=== PATIENT | male | born 1985 | race Caucasian/White ===

== ENCOUNTER 2018-08-23 23:21 | Emergency (ER) | payer SELFPAY ==
[~2018-08-23] VITALS: Ht 185.4 cm; Wt 63.5 kg
[2018-08-23 23:24] VITALS: BP 131/69
[2018-08-23] MEDS ORDERED: HYDROcodone/APAP 5/325MG 1 TAB TABLET PO ONE (23:45)
[2018-08-23] MEDS ORDERED: PENI500T PO (23:45)
--- NOTE | 2018-08-23 23:45 | PHYS DOC ---
Adult General Chief Complaint Chief Complaint: DENTAL PROBLEM HPI HPI Patient is a 32 year old male who presents to the emergency Department today with complaints of bilateral upper posterior dental pain for the last 3 hours. Patient denies any fever, recent injury, or recent dental fracture. States that he tried taking aleve PM with no relief of his pain. Review of Systems Review of Systems Constitutional: Denies fever or chills [] HENT: See HPI Integument: Denies rash or skin lesions [] Neurologic: Denies headache, focal weakness or sensory changes [] All other systems were reviewed and found to be within normal limits, except as documented in this note. Physical Exam Physical Exam Constitutional: Well developed, well nourished, no acute distress, non-toxic appearance. [] HENT: Normocephalic, atraumatic, bilateral external ears normal, oropharynx moist, no oral exudates, several missing teeth and broken teeth with diffuse dental decay, no visible dental abscess, nose normal. [] Eyes: conjunctiva normal, no discharge. [] Skin: Warm, dry, no erythema, no rash. [] Neurologic: Alert and oriented X 3, normal motor function, normal sensory function, no focal deficits noted. [] Psychologic: Affect normal, judgement normal, mood normal. [] EKG EKG [] Radiology/Procedures Radiology/Procedures [] Course & Med Decision Making Course & Med Decision Making Pertinent Labs and Imaging studies reviewed. (See chart for details) Dx dentalgia, infected dental caries RX for Penicillin VK, dental resources provided. Pt given one hydrocodone in the ER, advised to take 2 aleve twice daily for relief of pain. PT verbalized an understanding of POC and was in agreement. [] Dragon Disclaimer Dragon Disclaimer This electronic medical record was generated, in whole or in part, using a voice recognition dictation system. Departure Departure Impression: Primary Impression: Dentalgia Additional Impression: Infected dental caries Disposition: 01 HOME, SELF-CARE Condition: STABLE Patient Instructions: Dental Caries-Brief, Dental Pain, [id number] Additional Instructions: Fill prescription and use as directed. Follow up with a dentist using the dental referral list provided. Take 2 aleve twice daily or tylenol for relief of pain. Return to the ER if symptoms worsen. Scripts Penicillin V Potassium (PENICILLIN V POTASSIUM) 500 Mg Tablet 1 TAB PO QID for 10 Days, #40 TAB 0 Refills Prov: BOGUSLAW,MONAE D CHUCK SPLITTER 08/23/18 Problem Qualifiers MONAE RUDD APRN Aug 23, 2018 23:45
== END 2018-08-23 23:55 | disposition home or self-care (01) ==
LOC: ER 23:21
DX: K02.9 Dental caries, unspecified (principal)
CPT/HCPCS: 99283